=== PATIENT | female | born 1940 | race Caucasian/White ===

== ENCOUNTER 2019-08-09 11:24 | Outpatient (CLI) | payer MEDICARE, SELFPAY ==
[2019-08-09 11:46] LABS: Basophils Percent Auto 0.8 % (0.2-1.2); Eosinophils Absolute Auto 0.2 K/mm3 (0-0.3); Eosinophils Percent Auto 2.8 % (0-4.4); Hematocrit 37.2 % (37.0-47.0); Hemoglobin 12.9 g/dL (12.0-15.0); Immature Granulocyte Absolute 0.02 K/mm3 (0.00-0.031); Immature Granulocyte Percent A 0.4 % (0-0.5); Lymphocytes Absolute Auto 1.29 K/mm3 (0.9-3.2); Lymphocytes Percent Auto 24.4 % (18.3-44.2); Mean Corpuscular HGB Conc 34.7 g/dl (32-36); Mean Corpuscular Hemoglobin 32.3 pg (26-34); Mean Platelet Volume 10.3 fl (7.4-10.4); Monocytes Absolute Auto 0.4 K/mm3 (0.1-0.6); Neutrophils Absolute Auto 3.4 K/mm3 (1.3-6.7); Neutrophils Percent Auto 63.6 % (45.5-73.1); Platelet Count Result 157 k/mm3 (150-375); Red Cell Distribution Width 12.7 % (11.5-14.5); White Blood Count 5.3 K/mm3 (4.5-10.0)
[2019-08-09 16:42] LABS: Blood Urea Nitrogen 13 mg/dL (7-17); Calcium 9.3 mg/dL (8.4-10.2); Carbon Dioxide 28 mmol/L (22-30); Chloride 94 mmol/L (98-107); Estimated Glomerular Filt Rate > 60; Glucose 103 mg/dL (65-105); Potassium 3.9 mmol/L (3.4-5.0); Sodium 130 mmol/L (137-145)
[2019-08-12 04:06] LABS: CA 27.29 30 U/mL (<38)
== END 2019-08-09 11:25 | disposition home or self-care (01) ==
PROVIDERS: Visit Provider Internal Medicine Hematology & Oncology
DX: C50.912 Malignant neoplasm of unspecified site of left female breast (principal)
CPT/HCPCS: 36415; 80048; 85025; 86300

== ENCOUNTER 2020-02-14 11:46 | Outpatient (CLI) | payer MEDICARE, SELFPAY ==
[2020-02-14 12:02] LABS: Basophils Percent Auto 0.6 % (0.2-1.2); Eosinophils Absolute Auto 0.3 K/mm3 (0-0.3); Eosinophils Percent Auto 5.1 % (0-4.4); Hematocrit 37.3 % (37.0-47.0); Hemoglobin 12.8 g/dL (12.0-15.0); Immature Granulocyte Absolute 0.03 K/mm3 (0.00-0.031); Immature Granulocyte Percent A 0.6 % (0-0.5); Lymphocytes Absolute Auto 1.41 K/mm3 (0.9-3.2); Lymphocytes Percent Auto 28.8 % (18.3-44.2); Mean Corpuscular HGB Conc 34.3 g/dl (32-36); Mean Corpuscular Hemoglobin 32.4 pg (26-34); Mean Corpuscular Volume 94.4 fl (80-100); Mean Platelet Volume 9.8 fl (7.4-10.4); Monocytes Absolute Auto 0.4 K/mm3 (0.1-0.6); Monocytes Percent Auto 8.6 % (2.6-8.5); Neutrophils Absolute Auto 2.8 K/mm3 (1.3-6.7); Neutrophils Percent Auto 56.3 % (45.5-73.1); Platelet Count Result 152 k/mm3 (150-375); Red Blood Count 3.95 M/mm3 (4.2-5.4); Red Cell Distribution Width 12.7 % (11.5-14.5); White Blood Count 4.9 K/mm3 (4.5-10.0)
[2020-02-14 13:39] LABS: Alanine Aminotransferase 10 U/L (4-35); Albumin Level 3.9 g/dL (3.5-5.1); Alkaline Phosphatase 65 U/L (38-126); Anion Gap 10.7 mmol/L (7-16); Aspartate Amino Transferase 21 U/L (14-36); Bilirubin,Total 0.5 mg/dL (0.2-1.3); Blood Urea Nitrogen 13 mg/dL (7-17); Calcium 8.9 mg/dL (8.4-10.2); Carbon Dioxide 28 mmol/L (22-30); Chloride 97 mmol/L (98-107); Estimated Glomerular Filt Rate > 60; Glucose 105 mg/dL (65-105); Potassium 3.7 mmol/L (3.4-5.0); Sodium 132 mmol/L (137-145)
[2020-02-16 21:20] LABS: CA 27.29 26 U/mL (<38)
== END 2020-02-14 11:47 | disposition home or self-care (01) ==
LOC: ANHLAB 11:49
PROVIDERS: Visit Provider Internal Medicine Hematology & Oncology
DX: C50.912 Malignant neoplasm of unspecified site of left female breast (principal)
CPT/HCPCS: 36415; 80053; 85025; 86300

== ENCOUNTER 2020-08-15 12:30 | Outpatient (CLI) | payer MEDICARE, SELFPAY ==
[2020-08-15 13:02] LABS: Basophils Percent Auto 0.6 % (0.2-1.2); Eosinophils Absolute Auto 0.3 K/mm3 (0-0.3); Eosinophils Percent Auto 3.9 % (0-4.4); Hematocrit 38.7 % (37.0-47.0); Hemoglobin 12.9 g/dL (12.0-15.0); Immature Granulocyte Absolute 0.02 K/mm3 (0.00-0.031); Immature Granulocyte Percent A 0.3 % (0-0.5); Lymphocytes Absolute Auto 1.83 K/mm3 (0.9-3.2); Lymphocytes Percent Auto 28.9 % (18.3-44.2); Mean Corpuscular HGB Conc 33.3 g/dl (32-36); Mean Corpuscular Hemoglobin 31.8 pg (26-34); Mean Corpuscular Volume 95.3 fl (80-100); Mean Platelet Volume 10.1 fl (7.4-10.4); Monocytes Absolute Auto 0.5 K/mm3 (0.1-0.6); Monocytes Percent Auto 8.5 % (2.6-8.5); Neutrophils Absolute Auto 3.7 K/mm3 (1.3-6.7); Neutrophils Percent Auto 57.8 % (45.5-73.1); Platelet Count Result 168 k/mm3 (150-375); Red Blood Count 4.06 M/mm3 (4.2-5.4); Red Cell Distribution Width 12.8 % (11.5-14.5); White Blood Count 6.3 K/mm3 (4.5-10.0)
[2020-08-15 16:50] LABS: Alanine Aminotransferase 13 U/L (4-35); Albumin Level 3.9 g/dL (3.5-5.1); Alkaline Phosphatase 77 U/L (38-126); Anion Gap 7 mmol/L (8-16); Aspartate Amino Transferase 24 U/L (14-36); Bilirubin,Total 0.7 mg/dL (0.2-1.3); Blood Urea Nitrogen 13 mg/dL (7-17); Carbon Dioxide 28 mmol/L (22-30); Chloride 104 mmol/L (98-107); Estimated Glomerular Filt Rate > 60; Glucose 100 mg/dL (65-105); Sodium 139 mmol/L (137-145)
[2020-08-18 07:17] LABS: CA 27.29 25 U/mL (<38)
== END 2020-08-15 12:31 | disposition home or self-care (01) ==
PROVIDERS: Visit Provider Internal Medicine Hematology & Oncology
DX: C50.912 Malignant neoplasm of unspecified site of left female breast (principal)
CPT/HCPCS: 36415; 80053; 85025; 86300

== ENCOUNTER 2021-02-12 13:20 | Outpatient (CLI) | payer MEDICARE, SELFPAY ==
[2021-02-12 13:44] LABS: Basophils Percent Auto 0.6 % (0.2-1.2); Eosinophils Absolute Auto 0.4 K/mm3 (0-0.3); Eosinophils Percent Auto 6.4 % (0-4.4); Hematocrit 37.8 % (37.0-47.0); Hemoglobin 12.5 g/dL (12.0-15.0); Immature Granulocyte Absolute 0.01 K/mm3 (0.00-0.031); Immature Granulocyte Percent A 0.2 % (0-0.5); Immature Platelet Fraction Pct 5.9 % (0.9-11.2); Lymphocytes Absolute Auto 1.68 K/mm3 (0.9-3.2); Lymphocytes Percent Auto 26.8 % (18.3-44.2); Mean Corpuscular HGB Conc 33.1 g/dl (32-36); Mean Corpuscular Hemoglobin 31.3 pg (26-34); Mean Corpuscular Volume 94.7 fl (80-100); Mean Platelet Volume 10.8 fl (7.4-10.4); Monocytes Absolute Auto 0.5 K/mm3 (0.1-0.6); Monocytes Percent Auto 7.5 % (2.6-8.5); Neutrophils Absolute Auto 3.7 K/mm3 (1.3-6.7); Neutrophils Percent Auto 58.5 % (45.5-73.1); Platelet Count Result 143 k/mm3 (150-375); Red Blood Count 3.99 M/mm3 (4.2-5.4); Red Cell Distribution Width 13.4 % (11.5-14.5); White Blood Count 6.3 K/mm3 (4.5-10.0)
[2021-02-12 17:14] LABS: Alanine Aminotransferase 11 U/L (4-35); Albumin Level 3.8 g/dL (3.5-5.1); Alkaline Phosphatase 108 U/L (38-126); Anion Gap 7 mmol/L (8-16); Aspartate Amino Transferase 24 U/L (14-36); Bilirubin,Total 0.4 mg/dL (0.2-1.3); Blood Urea Nitrogen 19 mg/dL (7-17); Calcium 8.9 mg/dL (8.4-10.2); Carbon Dioxide 28 mmol/L (22-30); Chloride 101 mmol/L (98-107); Estimated Glomerular Filt Rate 60; Glucose 104 mg/dL (65-110); Potassium 3.7 mmol/L (3.4-5.0); Sodium 136 mmol/L (137-145)
[2021-02-15 06:59] LABS: CA 15-3 16 U/mL (<32)
== END 2021-02-12 13:21 | disposition home or self-care (01) ==
LOC: ANHLAB 13:24
PROVIDERS: Visit Provider Internal Medicine Hematology & Oncology
DX: C50.912 Malignant neoplasm of unspecified site of left female breast (principal)
CPT/HCPCS: 36415; 80053; 85025; 85055; 86300

== ENCOUNTER 2021-08-27 11:49 | Outpatient (CLI) | payer MEDICARE, SELFPAY ==
[2021-08-27 12:07] LABS: Basophils Percent Auto 0.5 % (0.2-1.2); Eosinophils Absolute Auto 0.1 K/mm3 (0-0.3); Eosinophils Percent Auto 1.7 % (0-4.4); Immature Granulocyte Absolute 0.05 K/mm3 (0.00-0.031); Immature Granulocyte Percent A 0.6 % (0-0.5); Lymphocytes Absolute Auto 1.87 K/mm3 (0.9-3.2); Lymphocytes Percent Auto 22.5 % (18.3-44.2); Mean Corpuscular HGB Conc 32.5 g/dl (32-36); Mean Corpuscular Hemoglobin 32.2 pg (26-34); Mean Platelet Volume 10.1 fl (7.4-10.4); Monocytes Absolute Auto 0.6 K/mm3 (0.1-0.6); Neutrophils Absolute Auto 5.6 K/mm3 (1.3-6.7); Neutrophils Percent Auto 67.7 % (45.5-73.1); Platelet Count Result 150 k/mm3 (150-375); Red Blood Count 4.04 M/mm3 (4.2-5.4); White Blood Count 8.3 K/mm3 (4.5-10.0)
[2021-08-27 16:19] LABS: Alanine Aminotransferase 15 U/L (4-35); Albumin Level 4.1 g/dL (3.5-5.1); Alkaline Phosphatase 90 U/L (38-126); Anion Gap 6 mmol/L (8-16); Aspartate Amino Transferase 38 U/L (14-36); Bilirubin,Total 0.6 mg/dL (0.2-1.3); Blood Urea Nitrogen 20 mg/dL (7-17); Calcium 8.9 mg/dL (8.4-10.2); Carbon Dioxide 28 mmol/L (22-30); Chloride 102 mmol/L (98-107); Estimated Glomerular Filt Rate > 60; Glucose 85 mg/dL (65-110); Potassium 3.8 mmol/L (3.4-5.0); Sodium 136 mmol/L (137-145)
[2021-08-30 06:01] LABS: CA 15-3 15 U/mL (<32)
== END 2021-08-27 11:50 | disposition home or self-care (01) ==
LOC: ANHLAB 11:51
PROVIDERS: Visit Provider Internal Medicine Hematology & Oncology
DX: C50.912 Malignant neoplasm of unspecified site of left female breast (principal)
CPT/HCPCS: 36415; 80053; 85025; 86300

== ENCOUNTER 2022-03-14 11:11 | Outpatient (CLI) | payer MEDICARE, SELFPAY ==
[2022-03-14 11:42] LABS: Basophils Percent Auto 0.7 % (0.2-1.2); Eosinophils Absolute Auto 0.4 K/mm3 (0-0.3); Eosinophils Percent Auto 6.7 % (0-4.4); Hematocrit 39.2 % (37.0-47.0); Hemoglobin 12.9 g/dL (12.0-15.0); Immature Granulocyte Absolute 0.03 K/mm3 (0.00-0.031); Immature Granulocyte Percent A 0.6 % (0-0.5); Lymphocytes Absolute Auto 1.78 K/mm3 (0.9-3.2); Lymphocytes Percent Auto 33.3 % (18.3-44.2); Mean Corpuscular HGB Conc 32.9 g/dl (32-36); Mean Corpuscular Hemoglobin 31.5 pg (26-34); Mean Corpuscular Volume 95.8 fl (80-100); Mean Platelet Volume 10.1 fl (7.4-10.4); Monocytes Absolute Auto 0.4 K/mm3 (0.1-0.6); Monocytes Percent Auto 8.1 % (2.6-8.5); Neutrophils Absolute Auto 2.7 K/mm3 (1.3-6.7); Neutrophils Percent Auto 50.6 % (45.5-73.1); Platelet Count Result 144 k/mm3 (150-375); Red Blood Count 4.09 M/mm3 (4.2-5.4); White Blood Count 5.3 K/mm3 (4.5-10.0)
[2022-03-14 15:44] LABS: Alanine Aminotransferase 16 U/L (6-35); Albumin Level 4.2 g/dL (3.5-5.1); Alkaline Phosphatase 79 U/L (38-126); Anion Gap 2 mmol/L (8-16); Aspartate Amino Transferase 27 U/L (14-36); Bilirubin,Total 0.4 mg/dL (0.2-1.3); Blood Urea Nitrogen 12 mg/dL (7-17); Calcium 8.7 mg/dL (8.4-10.2); Carbon Dioxide 29 mmol/L (22-30); Chloride 101 mmol/L (98-107); Estimated Glomerular Filt Rate > 60; Glucose 93 mg/dL (65-110); Potassium 4.6 mmol/L (3.4-5.0); Sodium 132 mmol/L (137-145)
[2022-03-17 07:07] LABS: CA 15-3 15 U/mL (<32)
== END 2022-03-14 11:12 | disposition home or self-care (01) ==
LOC: ANHLAB 11:13
PROVIDERS: Visit Provider Internal Medicine Hematology & Oncology
DX: C50.912 Malignant neoplasm of unspecified site of left female breast (principal)
CPT/HCPCS: 36415; 80053; 85025; 86300

== ENCOUNTER 2022-09-12 12:02 | Outpatient (CLI) | payer MEDICARE, SELFPAY ==
[2022-09-12 12:24] LABS: Basophils Absolute Auto 0.1 K/mm3 (0.0-0.1); Basophils Percent Auto 1.1 % (0.2-1.2); Eosinophils Absolute Auto 0.2 K/mm3 (0-0.3); Eosinophils Percent Auto 4.7 % (0-4.4); Hemoglobin 12.6 g/dL (12.0-15.0); Immature Granulocyte Absolute 0.02 K/mm3 (0.00-0.031); Immature Granulocyte Percent A 0.4 % (0-0.5); Immature Platelet Fraction Pct 4.7 % (0.9-11.2); Lymphocytes Absolute Auto 1.69 K/mm3 (0.9-3.2); Lymphocytes Percent Auto 35.9 % (18.3-44.2); Mean Corpuscular HGB Conc 33.2 g/dl (32-36); Mean Corpuscular Hemoglobin 32.2 pg (26-34); Mean Corpuscular Volume 97.2 fl (80-100); Mean Platelet Volume 10.1 fl (7.4-10.4); Monocytes Absolute Auto 0.5 K/mm3 (0.1-0.6); Monocytes Percent Auto 9.8 % (2.6-8.5); Neutrophils Absolute Auto 2.3 K/mm3 (1.3-6.7); Neutrophils Percent Auto 48.1 % (45.5-73.1); Platelet Count Result 139 k/mm3 (150-375); Red Blood Count 3.91 M/mm3 (4.2-5.4); Red Cell Distribution Width 13.2 % (11.5-14.5); White Blood Count 4.7 K/mm3 (4.5-10.0)
[2022-09-12 13:00] LABS: Alanine Aminotransferase 17 U/L (6-35); Albumin Level 4.1 g/dL (3.5-5.1); Alkaline Phosphatase 71 U/L (38-126); Anion Gap 5 mmol/L (8-16); Aspartate Amino Transferase 30 U/L (14-36); Bilirubin,Total 0.7 mg/dL (0.2-1.3); Blood Urea Nitrogen 15 mg/dL (7-17); Calcium 8.7 mg/dL (8.4-10.2); Carbon Dioxide 30 mmol/L (22-30); Chloride 104 mmol/L (98-107); Estimated Glomerular Filt Rate > 60; Glucose 91 mg/dL (65-110); Potassium 4.1 mmol/L (3.4-5.0); Sodium 139 mmol/L (137-145)
[2022-09-15 16:02] LABS: CA 15-3 16 U/mL (<32)
== END 2022-09-12 12:03 | disposition home or self-care (01) ==
PROVIDERS: Visit Provider Internal Medicine Hematology & Oncology
DX: C50.812 Malignant neoplasm of overlapping sites of left female breast (principal)
CPT/HCPCS: 36415; 80053; 85025; 85055; 86300

== ENCOUNTER 2023-04-30 13:48 | Outpatient (CLI) | payer MEDICARE, SELFPAY ==
[2023-04-30 14:17] LABS: Basophils Percent Auto 0.5 % (0.2-1.2); Eosinophils Absolute Auto 0.2 K/mm3 (0-0.3); Eosinophils Percent Auto 3.3 % (0-4.4); Hematocrit 36.1 % (37.0-47.0); Hemoglobin 12.2 g/dL (12.0-15.0); Immature Granulocyte Absolute 0.03 K/mm3 (0.00-0.031); Immature Granulocyte Percent A 0.5 % (0-0.5); Immature Platelet Fraction Pct 5.4 % (0.9-11.2); Lymphocytes Absolute Auto 2.64 K/mm3 (0.9-3.2); Lymphocytes Percent Auto 41.9 % (18.3-44.2); Mean Corpuscular HGB Conc 33.8 g/dl (32-36); Mean Corpuscular Hemoglobin 33.3 pg (26-34); Mean Corpuscular Volume 98.6 fl (80-100); Monocytes Absolute Auto 0.5 K/mm3 (0.1-0.6); Monocytes Percent Auto 7.9 % (2.6-8.5); Neutrophils Absolute Auto 2.9 K/mm3 (1.3-6.7); Neutrophils Percent Auto 45.9 % (45.5-73.1); Platelet Count Result 127 k/mm3 (150-375); Red Blood Count 3.66 M/mm3 (4.2-5.4); Red Cell Distribution Width 13.2 % (11.5-14.5); White Blood Count 6.3 K/mm3 (4.5-10.0)
[2023-04-30 17:49] LABS: Alanine Aminotransferase 18 U/L (6-35); Alkaline Phosphatase 77 U/L (38-126); Anion Gap 5 mmol/L (8-16); Aspartate Amino Transferase 59 U/L (14-36); Bilirubin,Total 0.6 mg/dL (0.2-1.3); Blood Urea Nitrogen 19 mg/dL (7-17); Calcium 8.4 mg/dL (8.4-10.2); Carbon Dioxide 23 mmol/L (22-30); Chloride 105 mmol/L (98-107); Estimated Glomerular Filt Rate > 60; Glucose 95 mg/dL (65-110); Potassium 4.1 mmol/L (3.4-5.0); Sodium 133 mmol/L (137-145)
[2023-05-04 20:45] LABS: CA 15-3 16 U/mL (<32)
== END 2023-04-30 13:49 | disposition home or self-care (01) ==
LOC: ANHLAB 13:51
PROVIDERS: Visit Provider Internal Medicine Hematology & Oncology
DX: C50.912 Malignant neoplasm of unspecified site of left female breast (principal)
CPT/HCPCS: 36415; 80053; 85025; 85055; 86300

== ENCOUNTER 2023-10-29 12:23 | Outpatient (CLI) | payer MEDICARE, SELFPAY ==
[2023-10-29 12:40] LABS: Basophils Percent Auto 0.9 % (0.2-1.2); Eosinophils Absolute Auto 0.2 K/mm3 (0-0.3); Eosinophils Percent Auto 3.9 % (0-4.4); Hematocrit 39.1 % (37.0-47.0); Hemoglobin 12.9 g/dL (12.0-15.0); Immature Granulocyte Absolute 0.03 K/mm3 (0.00-0.031); Immature Granulocyte Percent A 0.7 % (0-0.5); Immature Platelet Fraction Pct 4.7 % (0.9-11.2); Lymphocytes Absolute Auto 1.52 K/mm3 (0.9-3.2); Lymphocytes Percent Auto 33.3 % (18.3-44.2); Mean Corpuscular Hemoglobin 32.8 pg (26-34); Mean Corpuscular Volume 99.5 fl (80-100); Mean Platelet Volume 9.9 fl (7.4-10.4); Monocytes Absolute Auto 0.4 K/mm3 (0.1-0.6); Monocytes Percent Auto 8.3 % (2.6-8.5); Neutrophils Absolute Auto 2.4 K/mm3 (1.3-6.7); Neutrophils Percent Auto 52.9 % (45.5-73.1); Platelet Count Result 131 k/mm3 (150-375); Red Blood Count 3.93 M/mm3 (4.2-5.4); White Blood Count 4.6 K/mm3 (4.5-10.0)
[2023-10-29 17:12] LABS: Alanine Aminotransferase 15 U/L (6-35); Albumin Level 3.9 g/dL (3.5-5.1); Alkaline Phosphatase 74 U/L (38-126); Anion Gap 4 mmol/L (4-12); Aspartate Amino Transferase 25 U/L (14-36); Bilirubin,Total 0.6 mg/dL (0.2-1.3); Blood Urea Nitrogen 17 mg/dL (7-17); Calcium 8.5 mg/dL (8.4-10.2); Carbon Dioxide 27 mmol/L (22-30); Chloride 106 mmol/L (98-107); Estimated Glomerular Filt Rate > 60; Glucose 86 mg/dL (65-110); Sodium 137 mmol/L (137-145)
[2023-11-04 09:38] LABS: CA 15-3 16 U/mL (<32)
== END 2023-10-29 12:24 | disposition home or self-care (01) ==
LOC: ANHLAB 12:25
PROVIDERS: Visit Provider Internal Medicine Hematology & Oncology
DX: C50.912 Malignant neoplasm of unspecified site of left female breast (principal)
CPT/HCPCS: 36415; 80053; 85025; 85055; 86300

== ENCOUNTER 2024-11-10 11:12 | Outpatient (CLI) | payer MEDICARE, SELFPAY ==
[2024-11-10 11:43] LABS: Basophils Percent Auto 0.6 % (0.2-1.2); Eosinophils Absolute Auto 0.3 K/mm3 (0-0.3); Eosinophils Percent Auto 6.2 % (0-4.4); Hematocrit 40.5 % (37.0-47.0); Hemoglobin 13.2 g/dL (12.0-15.0); Immature Granulocyte Absolute 0.03 K/mm3 (0.00-0.031); Immature Granulocyte Percent A 0.6 % (0-0.5); Immature Platelet Fraction Pct 5.5 % (0.9-11.2); Lymphocytes Absolute Auto 1.53 K/mm3 (0.9-3.2); Lymphocytes Percent Auto 31.7 % (18.3-44.2); Mean Corpuscular HGB Conc 32.6 g/dl (32-36); Mean Corpuscular Hemoglobin 33.1 pg (26-34); Mean Corpuscular Volume 101.5 fl (80-100); Mean Platelet Volume 10.5 fl (7.4-10.4); Monocytes Absolute Auto 0.4 K/mm3 (0.1-0.6); Monocytes Percent Auto 7.7 % (2.6-8.5); Neutrophils Absolute Auto 2.6 K/mm3 (1.3-6.7); Neutrophils Percent Auto 53.2 % (45.5-73.1); Platelet Count Result 137 k/mm3 (150-375); Red Blood Count 3.99 M/mm3 (4.2-5.4); Red Cell Distribution Width 13.3 % (11.5-14.5); White Blood Count 4.8 K/mm3 (4.5-10.0)
--- OUTSIDE RECORDS SUMMARY | 2024-11-10 12:44 | XMS_ITS | Clinical Summary ---
Author Organization [facility] [place] Address [address] [place] [address] Phone Care Team Providers Care Investigation Division Captain Name Role Phone Parminder Fierro MD Primary Care Provider [phone] Allergies Active Allergy Reactions Criticality Noted Date Comments Latex Rash Low 03/09/2018 Nickel Itching Low 03/09/2018 Medications levothyroxine 75 mcg tablet Take 75 mcg by mouth daily . 8 Active metoprolol tartrate (LOPRESSOR) 50 mg tablet Take 50 mg by mouth 2 times daily . 8 Active CALCIUM-MAGNESIU M-VITAMIN D2 ORAL Take by mouth. Active atorvastatin (LIPITOR) 40 mg tablet 0 Active losartan (COZAAR) 100 mg tablet Take 100 mg by mouth. 1 Active potassium chloride (KLOR-CON) 10 mEq Extended Release tablet TAKE 1 TABLET BY MOUTH EVERY DAY 1 Active diphenhydrAMINE (BENADRYL) 2 % Cream Apply to affected area 3 times daily as needed. 1 Active busPIRone (BUSPAR) 15 mg Tablet Take 1 Tablet by mouth 2 times daily. 2 Active amLODIPine (NORVASC) 2.5 mg tablet Take 5 mg by mouth daily. 2 Active escitalopram oxalate (LEXAPRO) 5 mg tablet Take 5 mg by mouth daily. 2 Active sodium chloride 1 gram tabletIndication s:Hyponatremia Take 1 Tablet (1 Gram) by mouth daily. 30 Tablet 3 2 Active anastrozole (ARIMIDEX) 1 mg tabletIndication s:Malignant neoplasm of left female breast, unspecified estrogen receptor status, unspecified site of breast (CMS/HCC),Invasi ve ductal carcinoma of left breast (CMS/HCC) take 1 tablet by mouth every day 90 Tablet 3 4 Active raloxifene (EVISTA) 60 mg tabletIndication s:Benign hypertension,Mal ignant neoplasm of left female breast, unspecified estrogen receptor status, unspecified site of breast (CMS/HCC),Invasi ve ductal carcinoma of left breast (CMS/HCC) take 1 tablet by mouth every day 90 Tablet 3 4 Active Active Problems Patient Care Coordination No te Formatting of this note migh t be different from the original. Primary Care: Provider, Abstract Referring Provider: No referring provider defined for this encounter. Other: Dr Manisha Blanco MD Problem Noted Date Diagnosed Date Invasive ductal carcinoma of left breast 018 Overview (02/23/2019): #1 call offering Survivorship 02/18/19; VM. Chacha Gunter RN BS BSN Breast Health Nurse Navigator-[facility] #2 call offering Survivorship 02/23/19; Declined Chacha Gunter RN BS BSN Breast Health Nurse Navigator-[facility] Breast cancer 02/18/2018 Resolved Problems Problem Noted Date Diagnosed Date Resolved Date Abnormal mammogram 02/09/2018 9 Encounters Date Type Department Care Team Description 09/29/2024 External Device Data ST[facility] ABSTRACTION Provider, Abstract 09/29/2024 External Device Data [facility] ABSTRACTION Provider, Abstract 09/18/2024 External Device Data [facility] ABSTRACTION Provider, Abstract 09/17/2024 External Device Data [facility] ABSTRACTION Provider, Abstract 09/08/2024 12:45 PM NON ACOUSTIC OPERATOR - 09/08/2024 11:59 PM NON ACOUSTIC OPERATOR Hospital Encounter [facility] [address] [place] [address] Parminder Fierro MD Discharge Disposition: Home or Self Care 09/01/2024 External Device Data ST[facility] ABSTRACTION Provider, Abstract from Last 3 Months Family History Medical History Relation Name Comments Breast Cancer Daughter Lung Cancer Father Diabetes Mother Relation Name Status Comments Daughter Father Mother Social History Tobacco Use Types Packs/Day Years Used Date Smoking Tobacco: Never Smokeless Tobacco: Never Tobacco Cessation:Counseling Given: Not Answered Alcohol Use Standard Drinks/Week Comments No 0 (1 standard drink = 0.6 oz pur e alcohol) Comments No Sex and Gender Information Value Date Recorded Sex Assigned at Not on file Legal Sex Female 9:29 AM CDT Gender Identity Not on file Sexual Orientation Not on file Last Filed Vital Signs Vital Sign Reading Time Taken Comments Blood Pressure 146/77 11/19/2023 11:21 AM CDT Pulse 83 11/19/2023 11:17 AM CDT Temperature 36.2 C (97.2 F) 11/19/2023 11:17 AM CDT Respiratory Rate 16 11/19/2023 11:17 AM CDT Oxygen Saturation 93% 11/19/2023 11:17 AM CDT Inhaled Oxygen Concentration - - Weight 66.7 kg (147 lb) 11/19/2023 11:17 AM CDT Height 162.6 cm (5' 4 ) 07/08/2023 11:44 AM NON ACOUSTIC OPERATOR Body Mass Index 25.23 07/08/2023 11:44 AM NON ACOUSTIC OPERATOR Plan of Treatment Upcoming Encounters Date Type Department Care Team (Late st Contact Info) Description 11/16/2024 11:00 AM CDT Office Visit [facility] Oncology and Hematology [facility] [address] [facility] [address] [place] [address] Caesar Mena MD [address] [facility] [address] [place] [address] Health Maintenance Due Date Last Done Comments DTAP/TDAP/TD VACCINES (1 - Tdap) 1959 Traditional Medicare (ACO) A nnual Wellness Visit 1959 ZOSTER VACCINE (1 of 2) 10/07/1991 RSV VACCINE (60+ or ) (1 - 1-dose 75+ series) 2016 COVID-19 Vaccine (4 - 2023-2 5 season) 2024 05/26/2024, 09/13/2020, 08/16/2020 OSTEOPOROSIS SCREENING 04/02/2026 1, 05/15/2018, 04/09/2018 PNEUMOCOCCAL VACCINE 50+ YEARS Completed 0 02/17/2020, 08/14/2016, 04/25/2006 INFLUENZA VACCINE Completed 05/26/2024, , 06/25/2022, Additional history exists Medical Devices Implanted Type Area Engraver Hand Soft Metals Device Identifier Shelf Expiration Date Model / Serial / Lot Hemostatic Abs Surg Powder [id number] - [id number] Implanted:Qty: 1 on 03/11/2018 by Negra Duke MD at [facility] Hemostatic Left: Breast [employer] 07/13/2019 [id number] / / [id number] Procedures Procedure Name Priority Date/Time Associated Diagnosis Comments MAMMO 3D MATTHEW SCREEN BILAT W OR WO CAD Routine 09/08/2024 1:19 PM NON ACOUSTIC OPERATOR Screening mammogram for breast cancer XR DEXA BONE DENSITY AXIAL 1 OR MORE SITES Routine 05/15/2018 Invasive ductal carcinoma of left breast (CMS/HCC) Post-menopausal Osteoporosis screening from Last 3 Months or Most Recently Relevant to Health Maintenance Results * MAMMO 3D MATTHEW SCREEN BILAT W OR WO CAD (09/08/2024 1:19 PM NON ACOUSTIC OPERATOR) Anatomical Region Laterality Modality Breast Bilateral Mammography 09/08/2024 1:19 PM NON ACOUSTIC OPERATOR Impressions 09/08/2024 1:24 PM NON ACOUSTIC OPERATOR IMPRESSION: No evidence of malignancy.. RECOMMENDATIONS: Bilateral annual screening mammogram OVERALL FINAL ASSESSMENT: BI-RADS CATEGORY 2 - Benign findings DICTATION LOCATION: [facility] 09/08/2024 1:24 PM NON ACOUSTIC OPERATOR BILATERAL SCREENING DIGITAL MAMMOGRAMS WITH COMPUTER ASSISTED DIAGNOSIS WITH TOMOGRAPHY DATE: 09/08/2024 1:19 PM HISTORY: Left breast cancer and left lumpectomy.. COMPARISON: 07/08/2023 and 06/03/2022. TECHNIQUE: A bilateral screening mammogram was performed. Low-dose full-field digital breast tomosynthesis examination was performed with 2D and 3D acquisitions. Examination is read in conjunction with computer aided detection. BREAST COMPOSITION: Scattered fibroglandular densities. FINDINGS: No new masses, suspicious calcifications or areas of asymmetry or distortion are identified. The postsurgical changes in the left breast are seen. A skin lesion is seen in the right axilla. The images were reviewed using the CAD system. us Parminder Fierro MD MAMMO ORDERABLES Final Resul t * XR DEXA BONE DENSITY AXIAL 1 OR MORE SITES (05/15/2018) Anatomical Region Laterality Modality Other us Caesar Miranda MD DIAGNOSTIC IMAGING ORDERABLES Edited Result - Final from Last 3 Months or Most Recently Relevant to Health Maintenance Insurance MEDICARE PART A AND B [facility] RX [employer] RX Member Subscriber Plan / Payer (Ef fective for All Dates) Name:Mendy Monsivais Relation to Subscriber:Self Name:Mendy Monsivais Payer ID:Not on file Group ID:[id number] Type:RX Medicare Part D Address: [address] MEDICARE PART A AND B [employer] MCR SUPP [facility] Advance Directives For more information, please contact: [phone] * Full Code (Latest Code Status on File) Date Activated Date Inactivated Comments 03/11/2018 11:41 AM 03/11/2018 9:43 PM Care Teams Investigation Division Captain Relationship Specialty Start Date End Date Parminder Fierro MD [address] [place] [address] [place] [id number] PCP - General Family Practice 05/06/23
--- OUTSIDE RECORDS SUMMARY | 2024-11-10 12:44 | XMS_ITS | Encounter Summary ---
Author Organization [facility] Address [address] [place] [address] Care Team Providers Care Meat Blender Name Role Phone Parminder Fierro MD Primary Care Provider + [phone] Encounter Details Date Type Department Care Team (Late st Contact Info) Description 03/31/2018 Chart Note [facility] Radiation Therapy [address] [place] [address] [place] [address] [place] [address] Social History Tobacco Use Types Packs/Day Years Used Date Smoking Tobacco: Never Smokeless Tobacco: Never Alcohol Use Standard Drinks/Week Comments No 0 (1 standard drink = 0.6 oz pur e alcohol) Comments No Sex and Gender Information Value Date Recorded Sex Assigned at Not on file Legal Sex Female 9:29 AM CDT Gender Identity Not on file Sexual Orientation Not on file documented as of this encounter Plan of Treatment Upcoming Encounters Date Type Department Care Team (Late st Contact Info) Description 11/16/2024 11:00 AM CDT Office Visit [facility] Oncology and Hematology - [place] [address] [facility] [address] [place] [address] Caesar Mena MD [address] [facility] [address] [place] [address] documented as of this encounter Visit Diagnoses Not on filedocumented in this encounter Care Teams Meat Blender Relationship Specialty Start Date End Date Parminder Fierro MD [address] [place] [address] [place] [phone] PCP - General Family Practice 05/06/23 documented as of this encounter
--- OUTSIDE RECORDS SUMMARY | 2024-11-10 12:44 | XMS_ITS | Clinical Summary ---
Author Organization [facility] Address [facility] [place] [address] Care Team Providers Care Equipment Inspector Name Role Phone Parminder Fierro MD Primary Care Provider + [phone] Scout Acosta MD Unavailable + [phone] Malgorzata Blas PA-C Unavailable + [phone] Allergies Active Allergy Reactions Criticality Noted Date Comments Latex Rash Low 03/09/2018 Nickel Itching Low 03/09/2018 Medications anastrozole 1 MG tablet Take 1 tablet by mouth daily. Active raloxifene 60 MG tablet Take 1 tablet (60 mg total) by mouth daily. Active Calcium-Magnesium- Vitamin D (CALCIUM 1200+D3 OR) Take 1 capsule once daily with dinner Active multi vitamin/minerals (THERA-M ENHANCED) tablet Take 1 tablet by mouth daily. Active amiodarone (PACERONE) 100 MG tabletIndications: Primary hypertension,Persi stent atrial fibrillation (CMS/HCC HHS/HCC) Take 1 tablet (100 mg total) by mouth daily. 90 tablet 09/10/19 25 Active amLODIPine (NORVASC) 5 MG tabletIndications: Primary hypertension Take 1 tablet (5 mg total) by mouth daily. 90 tablet 09/10/19 25 Active losartan (COZAAR) 50 MG tabletIndications: Primary hypertension Take 1 tablet (50 mg total) by mouth nightly at bedtime. at bedtime 90 tablet 09/10/19 25 Active metoprolol succinate ER (TOPROL-XL) 50 MG 24 hr tabletIndications: Primary hypertension,Persi stent atrial fibrillation (CMS/HCC HHS/HCC) Take 1 tablet (50 mg total) by mouth daily. 90 tablet 09/10/19 25 Active potassium chloride CR (K-TAB) 10 MEQ Tab CR tabletIndications: Primary hypertension Take 2 tablets (20 mEq total) by mouth daily. 180 tablet 09/10/19 25 Active apixaban (ELIQUIS) 5 MG tabletIndications: Persistent atrial fibrillation (CMS/HCC HHS/HCC) Take 1 tablet (5 mg total) by mouth 2 (two) times daily. 180 tablet 09/10/19 25 Active atorvastatin (LIPITOR) 40 MG tabletIndications: Mixed hyperlipidemia Take 1 tablet (40 mg total) by mouth nightly at bedtime. at bedtime 90 tablet 09/10/19 25 Active levothyroxine (SYNTHROID) 75 MCG tabletIndications: Hypothyroidism due to acquired atrophy of thyroid TAKE 1 TABLET BY MOUTH EVERY OTHER DAY ALTERNATING WITH 50 MCG 45 tablet 09/10/19 25 Active levothyroxine (SYNTHROID) 50 MCG tabletIndications: Hypothyroidism due to acquired atrophy of thyroid TAKE 1 TABLET BY MOUTH EVERY OTHER DAY ALTERNATING WITH 75 MCG 45 tablet 09/10/19 25 Active Vitamin D3 (CHOLECALCIFEROL) 50 mcg tabletIndications: Vitamin D deficiency Take 1 tablet (50 mcg total) by mouth daily. 90 tablet 09/10/19 25 Active escitalopram (LEXAPRO) 10 MG tabletIndications: JOLYNN (generalized anxiety disorder) Take 1 tablet (10 mg total) by mouth daily. 90 tablet 09/10/19 25 Active busPIRone (BUSPAR) 15 MG tabletIndications: JOLYNN (generalized anxiety disorder) Take 1 tablet (15 mg total) by mouth 2 (two) times daily. 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, estrogen receptor positive ([facility]/HCC HHS/HCC) 07/02/2018 Primary hypertension 12/19/2015 Memory disorder 03/07/2015 Mixed hyperlipidemia JOLYNN (generalized anxiety disorder) Hypothyroidism due to acquired atrophy of thyroi d Arthritis Encounters Date Type Department Care Team Description 10/21/2024 1:40 PM CDT Office Visit [address] [place] [address] Yasmine Fierro V, QUALITY CONTROL-BC Headache (Cough/Weakness/susan sea/Pt sx started since Friday) 10/21/2024 Travel 09/23/2024 Scan [facility] Scanned, [facility] 09/22/2024 Telephone [facility] [address] [place] [address] Parminder Fierro MD Medication 09/15/[address] [place] [address] Parminder Fierro MD Lab Results 09/10/2024 11:59 PM SUPERVISOR GAS METER REPAIR Anesthesia Event [facility] Surgical Services [address] [place] [address] Raine Knight, MANAGER FRONT OFFICE 09/10/2024 3:41 PM SUPERVISOR GAS METER REPAIR - 09/10/2024 11:59 PM SUPERVISOR GAS METER REPAIR Hospital Encounter [facility] Laboratory [address] [place] [address] Parminder Fierro MD Discharge Disposition: Home or Self Care (Routine Discharge) 09/10/2024 3:00 PM SUPERVISOR GAS METER REPAIR Office Visit [address] [place] [address] Parminder Fierro MD Follow Up (Pt is here for a medication management f/u, Pt states she is doing well) 09/10/2024 Travel 08/31/2024 Telephone [facility] [address] [address] Parminder Fierro MD Medication Request 08/18/2024 10:25 AM SUPERVISOR GAS METER REPAIR Anesthesia Event [facility] [address] [place] [address] Raine Knight, MANAGER FRONT OFFICE 08/18/2024 9:44 AM SUPERVISOR GAS METER REPAIR - 08/18/2024 12:20 PM SUPERVISOR GAS METER REPAIR Hospital Encounter [facility] [address] [place] [address] April Anderson MD Discharge Disposition: Home or Self Care (Routine Discharge) 08/18/2024 Telephone [facility] One Day Services [address] [place] [place] [address] April Anderson MD Schedule Surgery (Pt ate full breakfast about 1 hour ago) 08/18/2024 Travel from Last 3 Months Immunizations Immunization Administration Dates Next Due Fluzone High Dose (IIV, triv alent, 0.5mL) 05/26/2024 Fluzone High Dose - >Age 65 (Prefilled Syringe) 05/27/2023,06/25/2022,03/29/2020,2016 H1N1 2009 Influenza Vaccine 07/03/2009 Influenza (Generic) 05/11/2018, 7,05/26/2015,2013,04/27/2013,04/27/2012 Influenza Adult (Generic) 07/01/2019 MODERNA COVID-19 (12+) MRNA, LNP-S, PF, 100 MCG/ 0.5 ML DOSE 09/13/2020,08/16/2020 PFIZER COVID-19 (12+) MRNA, LNP-S, PF, CAMILLA-SUCROSE, 30 MCG/0.3 ML (COMIRNATY) 05/26/2024 Pneumococcal (Pneumovax 23) 02/17/2020, 6 Pneumococcal (Prevnar 13) 08/14/2016 Shingrix 06/24/2023 Family History Medical History Relation Comments No Known Problems Father No Known Problems Mother Relation Status Comments Father Mother Social History Tobacco Use Types Packs/Day Years Used Date Smoking Tobacco: Never Smokeless Tobacco: Never Tobacco Cessation:Counseling Given: Not Answered Alcohol Use Standard Drinks/Week Comments No 0 (1 standard drink = 0.6 oz pur e alcohol) Humiliation, Afraid, Rape, and Kick questionnair e Answer Date Recorded Within the last year, have y ou been afraid of your partner or ex-partner? No 10/01/2022 Within the last year, have y ou been humiliated or emotionally abused in other ways by your partner or ex-partner? No Within the last year, have y ou been kicked, hit, slapped, or otherwise physically hurt by your partner or ex-partner? No 10/01/2022 Within the last year, have y ou been raped or forced to have any kind of sexual activity by your partner or ex-partner? No 10/01/2022 AUDIT-C Answer Date Recorded Frequency of Alcohol Consumption Never 07/01/2018 Average Number of Drinks Not on file 018 Frequency of Binge Drinking Not on file 06/13 Overall Financial Resource Strain (CARDIA) Answe r Date Recorded How hard is it for you to pa y for the very basics like food, housing, medical care, and heating? Not hard at all 10/01/2022 PHQ-2 Answer Date Recorded Patient Health Questionnaire-2 Score 2 10/21/2024 Hunger Vital Sign Answer Date Recorded Within the past 12 months, y ou worried that your food would run out before you got the money to buy more. Never true 10/02/19 23 Within the past 12 months, t he food you bought just didn't last and you didn't have money to get more. Never true 10/01/2022 PRAPARE - Transportation Answer Date Re corded In the past 12 months, has l ack of transportation kept you from medical appointments or from getting medications? No 09/12 In the past 12 months, has l ack of transportation kept you from meetings, work, or from getting things needed for daily living? No 10/01/2022 Housing Stability Vital Sign Answer Enrike e Recorded In the last 12 months, was t here a time when you were not able to pay the mortgage or rent on time? No 10/01/2022 In the last 12 months, how many places have you lived? 1 10/01/2022 In the last 12 months, was t here a time when you did not have a steady place to sleep or slept in a retirement (including now)? No 10/01/2022 Comments No Sex and Gender Information Value Date Recorded Sex Assigned at Female 08/18/2024 9:41 AM SUPERVISOR GAS METER REPAIR Legal Sex Female 6:25 PM CDT Gender Identity Not on file Sexual Orientation Not on file Last Filed Vital Signs Vital Sign Reading Time Taken Comments Blood Pressure 138/74 10/21/2024 1:41 PM CDT Pulse 64 10/21/2024 1:41 PM CDT Temperature 36.8 C (98.2 F) 10/21/2024 1:41 PM CDT Respiratory Rate 14 10/21/2024 1:41 PM CDT Oxygen Saturation 97% 10/21/2024 1:41 PM CDT Inhaled Oxygen Concentration - - Weight 64.5 kg (142 lb 4.8 oz) 10/21/2024 1:41 P M CDT Height 157.5 cm (5' 2 ) 10/21/2024 1:41 PM CDT Body Mass Index 26.03 10/21/2024 1:41 PM CDT Plan of Treatment Upcoming Encounters Date Type Department Care Team (Late st Contact Info) Description 12/08/2024 2:20 PM CDT Office Visit [facility] [address] [place] [address] Parminder Fierro MD [address] [place] [address] Health Maintenance Due Date Last Done Comments DTaP, Tdap and Td Vaccines (1 - Tdap) 1959 Annual Medicare Wellness Visit 2006 RSV Immunization or 60+ Years (1 - 1-dose 75+ series) 2016 Zoster Vaccines (2 of 2) 08/19/2023 06/24/2023 COVID-19 Vaccine ( season) 2024 05/26/2024, 06/01/2021, 09/13/2020, Additional history exists Dexa Scan (General) Completed 05/15/2018, 8 Pneumococcal Vaccine: 50+ Years Completed 02/17/2020, 08/14/2016, 04/25/2006 PHQ-2 (Physician [place]) Completed 10/21/2024 Meningococcal B Vaccine Aged Out No l onger eligible based on patient's age to complete this topic Meningococcal Vaccine Aged Out No nicky rachelle eligible based on patient's age to complete this topic RSV Immunizations Under 20 Months Aged Out No longer eligible based on patient's age to complete this topic Procedures Procedure Name Priority Date/Time Associated Diagnosis Comments CORONAVIRUS (COVID-19) INFLUENZA A & B ANTIGEN IA PANEL Routine 10/21/2024 Acute cough VITAMIN D, 25 OH Routine 09/10/2024 3:43 PM SUPERVISOR GAS METER REPAIR Annual physical exam Overweight (BMI 25.0-29.9) Encounter for vitamin deficiency screening Stage 2 chronic kidney disease Vitamin D deficiency TSH W/REFLEX Routine 09/10/2024 3:43 PM SUPERVISOR GAS METER REPAIR Annual physical exam Overweight (BMI 25.0-29.9) Thyroid disorder screen Primary hypertension Persistent atrial fibrillation (CMS/HCC HHS/HCC) Hypothyroidism due to acquired atrophy of thyroid JOLYNN (generalized anxiety disorder) HEMOGLOBIN, GLYCOSYLATED Routine 09/10/2024 3:43 PM SUPERVISOR GAS METER REPAIR Annual physical exam Overweight (BMI 25.0-29.9) Screening for diabetes mellitus (DM) LIPID PANEL Routine 09/10/2024 3:43 PM SUPERVISOR GAS METER REPAIR Annual physical exam Overweight (BMI 25.0-29.9) Lipid screening Mixed hyperlipidemia COMPREHENSIVE METABOLIC PANEL Routine 09/10/2024 3:43 PM SUPERVISOR GAS METER REPAIR Annual physical exam Overweight (BMI 25.0-29.9) Primary hypertension Stage 2 chronic kidney disease Persistent atrial fibrillation (CMS/HCC HHS/HCC) JOLYNN (generalized anxiety disorder) CBC W/DIFF AUTOMATED Routine 09/10/2024 3:43 PM SUPERVISOR GAS METER REPAIR Annual physical exam Overweight (BMI 25.0-29.9) Primary hypertension Stage 2 chronic kidney disease Persistent atrial fibrillation (CMS/HCC HHS/HCC) JOLYNN (generalized anxiety disorder) from Last 3 Months Results * CORONAVIRUS (COVID-19) INFLUENZA A & B ANTIGEN IA PANEL (10/21/2024) Pathologist [facility] CORONAVIRUS ANTIGEN IA NEGATIVE NEGATIVE [facility] ([address]), [place] INFLUENZA [facility] NE[facility]IVE [facility]GATIVE [facility] ([address]), [place] INFLUENZA B NEGATIVE NEGATIVE [facility] BRUNILDA BAUER ([address]), [place] [facility] ([address]), [place] NASAL STRUCTURE / Unknown 10/21/2024 us Yasmine Fierro V, QUALITY CONTROL-BC MICROBIOLOGY - GENERAL ORDERABLES Final Result [facility] ([address]), [address] [address], * TSH W/REFLEX (09/10/2024 3:43 PM SUPERVISOR GAS METER REPAIR) TSH 1.090 0.358 - 3.74 uIU/ML 09/10/2024 8:55 PM SUPERVISOR GAS METER REPAIR [facility] Comment: HIGH DOSES OF BIOTIN MAY INTERFERE WITH THIS TEST RESULT. CORRELATION TO CLINICAL HISTORY AND PRESENTATION RECOMMENDED. FREE T4 NOT INDICATED 09/10/2024 3:43 PM SUPERVISOR GAS METER REPAIR us Parminder Fierro MD LABORATORY Final Result Performing Organization Address [facility] Co de Phone Number [facility] [address] [place] [address], [place] [phone] * HEMOGLOBIN, GLYCOSYLATED (09/10/2024 3:43 PM SUPERVISOR GAS METER REPAIR) HGB A1C 4.8 <5.7 % 09/10/2024 9:21 PM SUPERVISOR GAS METER REPAIR [facility] Comment: ADA GUIDELINES 2010 5.7 TO 6.4% INCREASED RISK OF DIABETES > OR = 6.5% CONSISTENT WITH DIABETES ESTIMATED AVG GLUCOSE 91 mg/dL 09/10/2024 9:21 PM SUPERVISOR GAS METER REPAIR [facility] 09/10/2024 3:43 PM SUPERVISOR GAS METER REPAIR us Parminder Fierro MD LABORATORY Final Result Performing Organization Address City/[facility]/ZIP Co de Phone Number [facility] [address] [place] [address], [place] [phone] * (ABNORMAL) COMPREHENSIVE METABOLIC PANEL (09/10/2024 3:43 PM SUPERVISOR GAS METER REPAIR) GLUCOSE 98 70 - 99 MG/DL 09/10/2024 4:18 PM [facility] BUN 12 7 - 18 MG/DL 09/10/2024 4:18 PM [facility] CREATININE S/P/B 0.91 0.50 - 1.20 MG/DL 09/10/2024 4:18 PM [facility] SODIUM S/P/B 140 136 - 145 MMOL/L 09/10/2024 4:18 PM [facility] POTASSIUM S/P/B 4.0 3.5 - 5.1 MMOL/L 09/10/2024 4:18 PM [facility] CHLORIDE S/P/B 103 100 - 108 MMOL/L 09/10/2024 4:18 PM [facility] CO2 29.2 21.0 - 32.0 MMOL/L 09/10/2024 4:18 PM [facility] CALCIUM S/P/B 8.7 8.5 - 10.1 MG/DL 09/10/2024 4:18 PM [facility] BILIRUBIN TOTAL S/P/B 0.5 0.2 - 1.2 MG/DL 09/10/2024 4:18 PM [facility] Comment: THIS ASSAY IS NOT RECOMMENDED FOR PATIENTS UNDERGOING TREATMENT WITH ELTROMBOPAG DUE TO THE POTENTIAL FOR FALSELY ELEVATED RESULTS. TOTAL PROTEIN S/P/B 6.8 6.4 - 8.2 G/DL 09/10/2024 4:18 PM [facility] ALBUMIN S/P/B 3.2(L) 3.4 - 5.0 G/DL 09/10/2024 4:18 PM [facility] AST 20 15 - 37 U/L 09/10/2024 4:18 PM [facility] ALT 9(L) 14 - 55 U/L 09/10/2024 4:18 PM [facility] ALKALINE PHOSPHATASE S/P/B 64 50 - 136 U/L 09/10/2024 4:18 PM [facility] ANION GAP 7.8 5.0 - 15.0 MMOL/L 09/10/2024 4:18 PM SUPERVISOR GAS METER REPAIR [facility] BUN CREATININE RATIO 13.2 6 - 26 09/10/2024 4:18 PM [facility] A/G RATIO 0.9(L) 1.0 - 2.5 RATIO 09/10/2024 4:18 PM SUPERVISOR GAS METER REPAIR [facility] GFR ESTIMATE 63(L) >90 ML/MIN/1.7 3 M2 09/10/2024 4:18 PM [facility] Comment: NOTE: eGFR is not calculated for patients <18 years of age. This is an estimated GFR calculation using the new CKD EPI creatinine equation without race and so does not require a correction factor for race. This estimated GFR should not be used for calculating drug doses. 09/10/2024 3:43 PM SUPERVISOR GAS METER REPAIR us Parminder Fierro MD LABORATORY Final Result [facility] [address] [place] [address], * LIPID PANEL (09/10/2024 3:43 PM SUPERVISOR GAS METER REPAIR) CHOLESTEROL 176 <200 MG/DL 09/10/2024 8:55 PM SUPERVISOR GAS METER REPAIR [facility] TRIGLYCERIDES 51 <150 MG/DL 09/10/2024 8:55 PM SUPERVISOR GAS METER REPAIR [facility] HDL 97 >40.0 MG/DL 09/10/2024 8:55 PM [facility] LDL (CALCULATED) 69 <100 MG/DL 09/10/19 8:55 PM SUPERVISOR GAS METER REPAIR [facility] NON HDL CHOLESTEROL 79 <130 MG/DL 09/10 8:55 PM SUPERVISOR GAS METER REPAIR [facility] CHOL/HDL RATIO 1.8 0.0 - 4.5 09/10/2024 8:55 PM SUPERVISOR GAS METER REPAIR [facility] VLDL CALCULATION 10 5 - 55 MG/DL 09/10/2024 8:55 PM SUPERVISOR GAS METER REPAIR [facility] LIPID INTERPRETATION 09/10/2024 8:55 PM [facility] Comment: NIH CONCENSUS REPORT RECOMMENDATIONS: ADULT CHILD LOW RISK: CHOLESTEROL <200 <170 TRIGLYCERIDE <150 --- HDL >=60 --- LDL <100 <110 BORDERLINE: CHOLESTEROL 200-239 170-199 TRIGLYCERIDE 150-199 --- HDL 40-59 --- LDL 100-159 110-129 HIGH RISK: CHOLESTEROL >=240 >=200 TRIGLYCERIDE >=200 --- HDL <40 --- LDL >=160 >=130 09/10/2024 3:43 PM SUPERVISOR GAS METER REPAIR Parminder Fierro MD LABORATORY Final Result [facility] [address] [place] [address], [place] [phone] * (ABNORMAL) CBC W/DIFF AUTOMATED (09/10/2024 3:43 PM SUPERVISOR GAS METER REPAIR) WBC 4.72 4.50 - 11.00 x10'3/uL 09/10/2024 4:02 PM [facility] RBC 3.94(L) 4.00 - 5.20 x10'6/uL 09/10/2024 4:02 PM [facility] HGB 12.8 12.0 - 16.0 G/DL 09/10/2024 4:02 PM [facility] HCT 38.4 38.0 - 48.0 % 09/10/2024 4:02 PM [facility] MCV 97.5 80.0 - 100.0 FL 09/10/2024 4:02 PM [facility] MCH 32.5 26.0 - 34.0 PG 09/10/2024 4:02 PM [facility] MCHC 33.3 31.0 - 37.0 G/DL 09/10/2024 4:02 PM [facility] RDW 13.2 11.6 - 14.8 % 09/10/2024 4:02 PM [facility] PLT 131 130 - 400 x10'3/uL 09/10/2024 4:02 PM [facility] MPV 11.0 7.0 - 12.0 FL 09/10/2024 4:02 PM [facility] CBC COMMENT AUTOMATED RBC MORPHOLOGY AND PLATELET EVALUATION NORMAL 09/10/2024 4:02 PM [facility] NEUTROPHILS % 46.9 40.0 - 74.0 % 09/10/2024 4:02 PM [facility] LYMPHOCYTES % 38.3 14.0 - 46.0 % 09/10/2024 4:02 PM [facility] MONOCYTES % 8.7 4.0 - 13.0 % 09/10/2024 4:02 PM [facility] EOSINOPHILS 5.1 0.0 - 7.0 % 09/10/2024 4:02 PM [facility] BASOPHILS 0.6 0.0 - 3.0 % 09/10/2024 4:02 PM [facility] IMMATURE GRANS % 0.4 0.0 - 0.43 % 09/10/2024 4:02 PM [facility] NRBC % 0.0 % 09/10/2024 4:02 PM [facility] ABS. NEUTROPHILS TOTAL 2.21 1.69 - 7.81 x10'3/uL 09/10/2024 4:02 PM [facility] ABS. LYMPHOCYTES 1.81 0.21 - 5.42 x10'3/uL 09/10/2024 4:02 PM [facility] ABS. MONOCYTES 0.41 0.04 - 1.37 x10'3/uL 09/10/2024 4:02 PM [facility] ABS. EOSINOPHILS 0.24 0.00 - 0.68 x10'3/uL 09/10/2024 4:02 PM SUPERVISOR GAS METER REPAIR [facility] ABS. BASOPHILS 0.03 0.00 - 0.08 x10'3/uL 09/10/2024 4:02 PM SUPERVISOR GAS METER REPAIR [facility] ABS. IMMATURE GRANULOCYTES 0.02 0.00 - 0.06 x10'3/uL 09/10/2024 4:02 PM SUPERVISOR GAS METER REPAIR [facility] ABS. NUCLEATED RBC'S 0.00 0.00 - 0.01 x10'3/uL 09/10/2024 4:02 PM SUPERVISOR GAS METER REPAIR [facility] 09/10/2024 3:43 PM SUPERVISOR GAS METER REPAIR Parminder Fierro MD LABORATORY Final Result Performing Organization Address [facility]/ZIP Co de Phone Number [facility] [address] [place] [address], * VITAMIN D, 25 OH (09/10/2024 3:43 PM SUPERVISOR GAS METER REPAIR) Pathologist [facility] VITAMIN D 25 HYDROXY S/P/B 37 30 - 100 NG/ML 09/10/2024 8:56 PM SUPERVISOR GAS METER REPAIR [facility] Comment: INTERPRETATION DEFICIENT <20 INSUFFICIENT 20-29 SUFFICIENT 30-100 09/10/2024 3:43 PM SUPERVISOR GAS METER REPAIR Parminder Fierro MD LABORATORY Final Result Performing Organization Address City/[facility]/ZIP Co de Phone Number [facility] [address] [place] [address], from Last 3 Months Insurance MEDICARE [employer] Advance Directives * Full Code (Latest Code Status on File) Date Activated Date Inactivated Comments 10/02/2022 4:30 AM 10/05/2022 10:29 PM Care Teams Equipment Inspector Relationship Specialty Start Date End Date Parminder Fierro MD [address] [place] [address] [place] [address] PCP - General FAMILY PRACTICE 02/17/20 Scout Acosta MD [address] [place] [address] Consulting Physician CLINICAL CARDIAC ELECTROPHYSIOLOGY 09/26/23 Malgorzata Blas PA-C [address] [place] [address] Referring Physician PHYSICIAN MONUMENT SETTER 04/16/24
--- OUTSIDE RECORDS SUMMARY | 2024-11-10 12:44 | XMS_ITS | Encounter Summary ---
Author Organization [facility] Address [address] [place] [id number] Care Team Providers Care Truss Assembler Name Role Phone Moe Valentine MD Primary Care Provider + [phone] Parminder Fierro MD Primary Care Provider + [phone] Scout Acosta MD Unavailable + [phone] Malgorzata Blas PA-C Unavailable + [phone] Encounter Details Date Type Department Care Team (Late st Contact Info) Description 02/18/2018 Abstract [facility] Conversion Md, Generic Conversion, Social History Tobacco Use Types Packs/Day Years Used Date Smoking Tobacco: Never Assessed Comments Unknown Sex and Gender Information Value Date Recorded Sex Assigned at Female 08/18/2024 9:41 AM BITUMASTIC APPLIER Legal Sex Female 6:25 PM CDT Gender Identity Not on file Sexual Orientation Not on file documented as of this encounter Plan of Treatment Upcoming Encounters Date Type Department Care Team (Late st Contact Info) Description 12/08/2024 2:20 PM CDT [facility] [address] [place] [address] Parminder Fierro MD [address] [place] [address] [place] [address] documented as of this encounter Visit Diagnoses Not on filedocumented in this encounter Additional Health Concerns Infection Onset Date Last Indicated Resolved Time COVID-19 Rule Out 05/05/2020 05/05/2020 05/06/2020 10:40 PM CDT COVID-19 Confirmed 05/05/2020 05/05/2020 0 12:34 AM BITUMASTIC APPLIER COVID-19 Rule Out 10/01/2022 10/01/2022 10/01/2022 9:37 AM CDT COVID-19 Rule Out 10/01/2022 10/01/2022 10/01/2022 9:57 AM CDT COVID-19 Rule Out 10/01/2022 10/01/2022 10/01/2022 11:39 AM CDT COVID-19 Rule Out 10/02/2022 10/02/2022 10/02/2022 1:00 PM CDT Respiratory Rule-Out 10/21/2024 10/21/2024 025 2:08 PM CDT documented as of this encounter Care Teams Truss Assembler Relationship Specialty Start Date End Date Moe Valentine MD [address] [place] [address] PCP - General FAMILY PRACTICE 05/11/18 02/16/20 Parminder Fierro MD [address] [place] [address] PCP - General FAMILY PRACTICE 02/17/20 Scout Acosta MD [address] [place] [address] Consulting Physician CLINICAL CARDIAC ELECTROPHYSIOLOGY 09/26/23 Malgorzata Blas PA-C [address] [place] [id number] Referring Physician PHYSICIAN SLABBER LIGHT 04/16/24 documented as of this encounter
--- OUTSIDE RECORDS SUMMARY | 2024-11-10 12:44 | XMS_ITS | Encounter Summary ---
Author Organization [facility] Address [facility] [place] [address] Care Team Providers Care Hoistman Name Role Phone Parminder Fierro MD Primary Care Provider + [phone] Scout Acosta MD Unavailable + [phone] Malgorzata Blas PA-C Unavailable + [phone] Encounter Details Date Type Department Care Team (Late st Contact Info) Description 10/08/2022 Hospital Follow-up Call [facility] [address] [place] [address] Evy Gudino RN Social History Tobacco Use Types Packs/Day Years [...] Answer Date Recorded Patient Health Questionnaire-2 Score 0 08/21/2022 Hunger Vital Sign Answer Date Recorded Within [...] place to sleep or slept in a mcc (including now)? 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 No / Unsure 10/09/2022 1:31 PM CDT documented as of this encounter Functional Status * Are you deaf or do you have serious difficulty hearing Answer Date of Assessment Author Status No 10/01/2022 10:30 PM CDT Viviana Gilbert RN Active * Are you blind or do you have serious difficulty seeing, even when wearing glasses? Answer Date of Assessment Author Status No 10/01/2022 10:30 PM CDT Viviana Gilbert RN Active * Do you have serious difficulty walking or climbing stairs? Answer Date of Assessment Author Status No 10/01/2022 10:30 PM CDT Viviana Gilbert RN Active * Do you have difficulty dressing or bathing? Answer Date of Assessment Author Status No 10/01/2022 10:30 PM CDT Viviana Gilbert RN Active * Because of a physical, mental, or emotional condition, do you have difficulty doing errands alone such as visiting a doctor's office or shopping? Answer Date of Assessment Author Status No 10/01/2022 10:30 PM CDT Viviana Gilbert RN Active documented as of this encounter Mental Status * Because of a physical, mental, or emotional condition, do you have serious difficulty concentrating, remembering, or making decisions? Answer Entry Date Author Status No 10/01/2022 10:30 PM CDT Viviana Gilbert RN Active documented in this encounter Plan of Treatment Upcoming Encounters Date Type Department Care Team (Late st Contact Info) Description 12/08/2024 2:20 PM CDT Office Visit [facility] [address] [address] Parminder Fierro MD [address] [address] documented as of this encounter Visit Diagnoses Not on filedocumented in this encounter Additional Health Concerns Infection Onset Date Last Indicated Resolved Time Respiratory Rule-Out 10/21/2024 10/21/2024 025 2:08 PM CDT documented as of this encounter Care Teams Hoistman Relationship Specialty Start Date End Date Parminder Fierro MD [address] [address] PCP - General FAMILY PRACTICE 02/17/20 Scout Acosta MD [facility] [place] [address] Consulting Physician CLINICAL CARDIAC ELECTROPHYSIOLOGY 09/26/23 Malgorzata Blas PA-C [address] [place] [address] Referring Physician PHYSICIAN DIRECTOR HOME HEALTH 04/16/24 documented as of this encounter
--- OUTSIDE RECORDS SUMMARY | 2024-11-10 12:44 | XMS_ITS | Encounter Summary ---
Author Organization [facility] Address [address] [place] [id number] Care Team Providers Care Paint Formulator Name Role Phone Moe Valentine MD Primary Care Provider + [phone] Parminder Fierro MD Primary Care Provider + [phone] Scout Acosta MD Unavailable [phone] Malgorzata Blas PA-C Unavailable + [phone] Encounter Details Date Type Department Care Team (Late st Contact Info) Description 04/19/2019 Abstract [facility] [address] [place] [address] Moe Valentine MD [address] [place] [address] Social History Tobacco Use Types Packs/Day Years Used Date Smoking Tobacco: Never Smokeless Tobacco: Never Alcohol Use Standard Drinks/Week Comments No 0 (1 standard drink = 0.6 oz pur e alcohol) AUDIT-C Answer Date Recorded Frequency of Alcohol Consumption Never 07/01/2018 Average Number of Drinks Not on file 018 Frequency of Binge Drinking Not on file 06/13 Comments Unknown Sex and Gender Information Value Date Recorded Sex Assigned at Female 08/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 Sex Female 6:25 PM CDT Gender Identity Not on file Sexual Orientation Not on file documented as of this encounter Plan of Treatment Upcoming Encounters Date Type Department Care Team (Late st Contact Info) Description 12/08/2024 2:20 PM CDT Office Visit [facility] [address] [place] [address] Parminder Fierro MD [address] [address] documented as of this encounter Visit Diagnoses Not on filedocumented in this encounter Additional Health Concerns Infection Onset Date Last Indicated Resolved Time COVID-19 Rule Out 05/05/2020 05/05/2020 05/06/2020 10:40 PM CDT COVID-19 Confirmed 05/05/2020 05/05/2020 12:34 AM VENETIAN BLIND MAKER COVID-19 Rule Out 10/01/2022 10/01/2022 10/01/2022 9:37 AM CDT COVID-19 Rule Out 10/01/2022 10/01/2022 10/01/2022 9:57 AM CDT COVID-19 Rule Out 10/01/2022 10/01/2022 10/01/2022 11:39 AM CDT COVID-19 Rule Out 10/02/2022 10/02/2022 10/02/2022 1:00 PM CDT Respiratory Rule-Out 10/21/2024 10/21/2024 025 2:08 PM CDT documented as of this encounter Care Teams Paint Formulator Relationship Specialty Start Date End Date Moe Valentine MD [address] [place] [address] PCP - General FAMILY PRACTICE 05/11/18 02/16/20 Parminder Fierro MD [address] [place] [address] PCP - General FAMILY PRACTICE 02/17/20 Scout Acosta MD [facility] [place] [address] Consulting Physician CLINICAL CARDIAC ELECTROPHYSIOLOGY 09/26/23 Malgorzata Blas PA-C [address] [place] [address] Referring Physician PHYSICIAN CHIMNEY CONSTRUCTION SUPERVISOR 04/16/24 documented as of this encounter
--- OUTSIDE RECORDS SUMMARY | 2024-11-10 12:44 | XMS_ITS | Encounter Summary ---
Author Organization [facility] Address [address] [place] [address] Care Team Providers Care Mercury Cracking Tester Name Role Phone Moe Valentine MD Primary Care Provider + [phone] Parminder Fierro MD Primary Care Provider + [phone] Scout Acosta MD Unavailable + [phone] Malgorzata Blas PA-C Unavailable + [phone] Encounter Details Date Type Department Care Team (Late st Contact Info) Description 05/11/2018 Abstract HEALTH INFO [facility] Scanned, Documents Social History Tobacco Use Types Packs/Day Years Used Date Smoking Tobacco: Never Assessed Comments Unknown Sex and Gender Information Value Date Recorded Sex Assigned at Female 08/18/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 Legal Sex Female 6:25 PM CDT Gender Identity Not on file Sexual Orientation Not on file documented as of this encounter Plan of Treatment Upcoming Encounters Date Type Department Care Team (Late st Contact Info) Description 12/08/2024 2:20 PM CDT Office Visit [facility] [address] [phone] Parminder Fierro MD [address] [phone] documented as of this encounter Visit Diagnoses Not on filedocumented in this encounter Additional Health Concerns Infection Onset Date Last Indicated Resolved Time COVID-19 Rule Out 05/05/2020 05/05/2020 05/06/2020 10:40 PM CDT COVID-19 Confirmed 05/05/2020 05/05/2020 0 12:34 AM SERVICE DOG TRAINER COVID-19 Rule Out 10/01/2022 10/01/2022 10/01/2022 9:37 AM CDT COVID-19 Rule Out 10/01/2022 10/01/2022 10/01/2022 9:57 AM CDT COVID-19 Rule Out 10/01/2022 10/01/2022 10/01/2022 11:39 AM CDT COVID-19 Rule Out 10/02/2022 10/02/2022 10/02/2022 1:00 PM CDT Respiratory Rule-Out 10/21/2024 10/21/2024 025 2:08 PM CDT documented as of this encounter Care Teams Mercury Cracking Tester Relationship Specialty Start Date End Date Moe Valentine MD [address] [place] [address] PCP - General FAMILY PRACTICE 05/11/18 02/16/20 Parminder Fierro MD [address] [address] PCP - General FAMILY PRACTICE 02/17/20 Scout Acosta MD [address] [place] [address] Consulting Physician CLINICAL CARDIAC ELECTROPHYSIOLOGY 09/26/23 Malgorzata Blas PA-C [address] [place] [address] Referring Physician PHYSICIAN CLAY BURNER 04/16/24 documented as of this encounter
[2024-11-10 16:27] LABS: Alanine Aminotransferase 14 U/L (6-35); Albumin Level 3.8 g/dL (3.5-5.1); Alkaline Phosphatase 62 U/L (38-126); Anion Gap 8 mmol/L (4-12); Aspartate Amino Transferase 28 U/L (14-36); Bilirubin,Total 0.5 mg/dL (0.2-1.3); Blood Urea Nitrogen 13 mg/dL (7-17); Calcium 8.7 mg/dL (8.4-10.2); Carbon Dioxide 25 mmol/L (22-30); Chloride 105 mmol/L (98-107); Estimated Glomerular Filt Rate > 60; Glucose 80 mg/dL (65-110); Potassium 4.2 mmol/L (3.4-5.0); Sodium 138 mmol/L (137-145)
[2024-11-12 01:43] LABS: CA 15-3 13 U/mL (<32)
== END 2024-11-10 11:13 | disposition home or self-care (01) ==
PROVIDERS: Visit Provider Internal Medicine Hematology & Oncology
DX: C50.912 Malignant neoplasm of unspecified site of left female breast (principal)
CPT/HCPCS: 36415; 80053; 85025; 85055; 86300